=== PATIENT | male | born 1950 | race Caucasian/White ===

== ENCOUNTER → 2018-11-03 13:46 | Outpatient (CLI) | payer MEDICARE, OTHER, SELFPAY ==
--- NOTE | 2018-11-03 | DI.RAD.S_ITS ---
PROCEDURE: XR CHEST 2V INDICATIONS: PNEUMONIA TECHNIQUE: 2 views of the chest were acquired. COMPARISON: None. FINDINGS: Surgical changes and devices: None. Lungs and pleura: Lungs are clear. No pleural effusions or pneumothorax. Mediastinum: Mediastinal contours are normal. Heart size is normal. Bones and chest wall: No suspicious bony abnormalities. Soft tissues appear unremarkable. IMPRESSION: No acute disease Dictated by: Madhav Wheatley M.D. on 11/03/2018 at 15:51 Approved by: Madhav Wheatley M.D. on 11/03/2018 at 15:52
== END ==
PROVIDERS: PCP Internal Medicine; Visit Provider Specialist
DX: J18.9 Pneumonia, unspecified organism (principal)
CPT/HCPCS: 71046

== ENCOUNTER → 2018-11-05 14:55 | Outpatient (CLI) | payer MEDICARE, OTHER, SELFPAY ==
--- NOTE | 2018-11-14 09:10 | P.PFT.S_ITS ---
Pulmonary Function Test Referral & Results Date Patient Seen: 11/05/18 Requesting provider: Bj Miller Indication: Shortness of breath Results: The spirometry demonstrates an FVC of 4.16 L which is 82% of predicted. The FEV1 was measured at 3.14 L which is 84% of predicted. The FEV1/FVC ratio was 75 which is 101% of predicted. Following the administration of bronchodilator there was a 26% improvement in FEF 25-75%. Lung volumes show an SVC of 4.31 L which is 85% of predicted. The diffusing capacity was measured at 23.09 which is 63% of predicted. No hemoglobin value was provided, so no correction for potential anemia could be made, if appropriate. The maximum voluntary ventilation was normal Interpretation: This study demonstrates mild obstructive lung disease based our reduction in FEV1. There is some minimal but some evidence of improvement in small airway flow based on improvement in FEF 25-75% following the administration of br onchodilator There is minimal restrictive lung disease present based on minimal reduction in SVC There is a slightly more significant reduction in diffusing capacity suggesting disease of the capillary alveolar level as well Clinical correlation suggested
== END ==
PROVIDERS: PCP Internal Medicine; Visit Provider Specialist
DX: R06.02 Shortness of breath (principal); J18.9 Pneumonia, unspecified organism
CPT/HCPCS: 94060; 94726; 94729